=== PATIENT | female | born 1985 | race Two or more races ===

== ENCOUNTER 2020-01-08 13:01 | Emergency (ER) | payer OTHER ==
[~2020-01-08] VITALS: Ht 167.6 cm; Wt 109.0 kg
[2020-01-08 13:24] VITALS: BP 173/92
== END 2020-01-08 15:31 | disposition home or self-care (01) ==
LOC: ER 13:20
DX: T16.2XXA Foreign body in left ear, initial encounter (principal); X58.XXXA Exposure to other specified factors, initial encounter; Y93.89 Activity, other specified; Y92.89 Other specified places as the place of occurrence of the external cause; Y99.8 Other external cause status
CPT/HCPCS: 99281